=== PATIENT | female | born 1970 | race Caucasian/White ===

== ENCOUNTER 2017-10-09 13:35 | Emergency (ER) | payer MEDICAID ==
[~2017-10-09] VITALS: Ht 162.6 cm; Wt 65.8 kg
[~2017-10-09 13:35] MED LIST: AMOXICILLIN 50500 MG PO; ATIVAN1 MG PO; CELEXA10 MG PO; FLAGYL500 MG PO; IBUPROFEN 800800 MG PO; LEXAPRO20 MG PO; PREDNISONE 20 M20 M1 PO; PROAIR RESPICL90 MCG IH; TUSSIONEX PENN473 ML PO; VENTOLIN HFA 1818 GM INH; XANAX1 MG PO
[2017-10-09] MEDS ORDERED: VICODIN 5-3001 EACH PO (13:58)
[2017-10-09] MEDS ORDERED: KEFLEX500 M1 PO (15:41)
[2017-10-09] MEDS ORDERED: BACTRIM DS TAB1 EACH PO (15:41)
[2017-10-09 16:10] VITALS: BP 120/82
== END 2017-10-09 16:11 | disposition home or self-care (01) ==
LOC: M.ERS 13:35
DX: L02.413 Cutaneous abscess of right upper limb (principal); L03.113 Cellulitis of right upper limb; F17.210 Nicotine dependence, cigarettes, uncomplicated; Z90.710 Acquired absence of both cervix and uterus; Z86.14 Personal history of Methicillin resistant Staphylococcus aureus infection

== ENCOUNTER 2017-11-18 14:05 | Emergency (ER) | payer OTHER ==
[~2017-11-18] VITALS: Ht 167.6 cm; Wt 70.3 kg
[~2017-11-18 14:05] MED LIST changes: +BACTRIM DS TAB1 EACH PO; +KEFLEX500 M1 PO; +VICODIN 5-3001 EACH PO
[2017-11-18 14:20] VITALS: BP 116/84
== END 2017-11-18 14:40 | disposition left against medical advice (07) ==
LOC: M.ERS 14:05
DX: Z53.21 Procedure and treatment not carried out due to patient leaving prior to being seen by health care provider (principal)